=== PATIENT | female | born 1940 | race Caucasian/White ===

== ENCOUNTER 2016-12-10 22:00 | Emergency (ER) | payer OTHER ==
[~2016-12-10] VITALS: Ht 165.1 cm; Wt 78.3 kg
[~2016-12-10 22:00] MED LIST: ASPCH81X PO; AZEL30SP NAE; CHOL100027 PO; ESTR1CRE PV; FEXO1TAB49 PO; FLUT50SP14 NAE; GABA1CAP4 PO; LORA-741 PO; MONT1TAB3 PO; PANT40TA PO; ULT/50 PO; ZNTT/150 PO
[2016-12-10 22:01] VITALS: TEMP 36.7; Ht 165.1 cm; Wt 78.3 kg
--- NOTE | 2016-12-10 22:34 | EMERGENCY ROOM VISIT NOTE ---
History Report prepared by Andrew: Live Amezcua Under the Supervision of: Dr. Fabio Roberts D.O. First contact with patient: 22:06 Chief Complaint: FALL Stated Complaint: LF SHOULDER PAIN History of Present Illness The patient is a 76 year old female who presents to the Emergency Room with complaints of constant pain in the left shoulder that began following a fall, shortly prior to arrival. The patient states that she fell into a wall in her home this evening and injured left shoulder. Her pain is increased with range of motion of the joint. She denies any back pain, neck pain, or head pain at this time. 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 A total of 10 systems reviewed and were otherwise negative. Past Medical & Surgical Medical Problems: (1) GERD (gastroesophageal reflux disease) (2) Left ankle surgery Surgical Problems: (1) H/O: hysterectomy (2) Hx of appendectomy Family History FH: Parkinson's disease Social History Smoking Status: Never Smoker Alcohol Use: occasionally Marital Status: Occupation Status: retired Current/Historical Medications Scheduled Aspirin (Aspirin Chewable), 81 MG PO QAM Cholecalciferol (Vitamin D 1000 Unit), 1,000 INTER.UNIT PO QAM Estrogens, Conjugated (Premarin), 1 GM PV PRN Fexofenadine Hcl (Antionette Allergy), 180 MG PO QAM Gabapentin (Gabapentin), 300 MG PO TID Montelukast Sodium (Singulair), 10 MG PO QPM Pantoprazole (Protonix), 40 MG PO BID Ranitidine (Zantac), 150 MG PO BID Scheduled PRN Fluticasone Propionate (Nasal) (Flonase Allergy Relief), 2 SPRAYS THEE DAILY PRN for Nasal Congestion Lorazepam (Ativan), 0.5 MG PO Q8 PRN for PRN Tramadol Hcl (Ultram), 50 MG PO Q4H PRN Allergies Coded Allergies: Amoxicillin (Verified Adverse Reaction, Unknown, diarrhea, 12/10/16) Clavulanic Acid (Verified Adverse Reaction, Unknown, diarrhea, 12/10/16) Sulfamethoxazole w/Trimethoprim (Verified Adverse Reaction, Unknown, body aches, 12/10/16) Physical Exam Vital Signs Date Time Temp Pulse Resp B/P Pulse Ox O2 Delivery O2 Flow Rate FiO2 12/10/16 23:25 88 16 198/101 96 12/10/16 22:01 36.7 82 20 194/90 97 Room Air Physical Exam GENERAL: Patient is awake, alert, and somewhat anxious and uncomfortable appearing. EYES: The conjunctivae are clear. The pupils are round and reactive. EARS, NOSE, MOUTH AND THROAT: The nose is without any evidence of any deformity. Mucous membranes are moist tongue is midline NECK: The neck is nontender and supple. RESPIRATORY: Normal respiratory effort is noted there is no evidence of wheezing rhonchi or rales CARDIOVASCULAR: Regular rate and rhythm noted there no murmurs rubs or gallops normal S1 normal S2 GASTROINTESTINAL: The abdomen is soft. Bowel sounds are present in all quadrants. Abdomen is nontender PELVIS: The Pelvis is stable. No tenderness to palpation is noted. BACK: No midline tenderness or or step-off noted range of motion in flexion extension as well as rotation no signs of muscle spasm noted MUSCULOSKELETAL/EXTREMITIES: The left upper extremity was held in adduction position with internal rotation, there was a deltoid stepoff noted with anterior fullness noted in the left shoulder. SKIN: There is no obvious evidence of any rash. There are no petechiae, pallor or cyanosis noted. NEUROLOGIC: Patient is awake alert and oriented x3. Medical Decision & Procedures ER Provider Diagnostic Interpretation: Radiology results as stated below per my review and radiologist interpretation: LEFT SHOULDER 2 VIEWS HISTORY: Left shoulder pain. COMPARISON: None. FINDINGS: There is no fracture or dislocation. Soft tissues are unremarkable. Left clavicle is intact. IMPRESSION: No fractures. Electronically signed by: Ori Bustillo M.D. 12/10/2016 10:55 PM Dictated Date/Time: 12/10/2016 10:55 PM Medications Administered Medications (Trade) Dose Ordered Sig/Sohail Route Start Time Stop Time Status Last Admin Dose Admin Acetaminophen (Tylenol Tab) 1,000 mg NOW STAT PO 12/10/16 23:01 12/10/16 23:02 DC 12/10/16 23:15 1,000 MG Oxycodone HCl (Roxicodone Immediate Rel 5MG Home Pack) 1 homepack UD ONCE PO 12/10/16 23:15 12/10/16 23:16 DC 12/10/16 23:15 1 [facility] 220: The patient was evaluated in room B7. A complete history and physical examination were performed. 230: Ordered Tylenol 1000 mg PO. 231: Ordered Oxycodone HCl 1 homepack PO. 2319: Upon reevaluation, the patient is resting in bed, and her shoulder is feeling well. I discussed the results and treatment plan with her. She verbalized agreement of the treatment plan. The patient was discharged home. Medical Decision Differential diagnosis: Etiologies such as fracture, dislocation, neurovascular compromise, compartment syndrome, soft tissue injury, as well as others were entertained. Nursing notes reviewed. The patient is a 76-year-old female who presented to the emergency department for evaluation after she fell injuring her left shoulder. The patient's physical exam appeared to be consistent with an anterior shoulder dislocation. She was reduced without too much difficulty. She was treated with pain medication and a sling. The patient's shoulder x-ray revealed no acute abnormality post reduction. She was given referral from patient to the orthopedic physician of her choice. She was encouraged to rest the shoulder and avoid any strenuous activity. Otherwise she was encouraged to return to the emergency department immediately if symptoms change worsen or the need arises. Impression Primary Impression: Anterior dislocation of left shoulder Scribe Attestation The scribe's documentation has been prepared under my direction and personally reviewed by me in its entirety. I confirm that the note above accurately reflects all work, treatment, procedures, and medical decision making performed by me. Departure Information Dispostion Home / Self-Care Referrals Georgiana Daniel M.D. (PCP) Forms HOME CARE DOCUMENTATION FORM, IMPORTANT VISIT INFORMATION Patient Instructions My [facility] Additional Instructions Call orthopedic physician in the morning to schedule a follow-up appointment. Rest and avoid any strenuous activity. Continue using Motrin and Tylenol as directed for mild pain. Problem Qualifiers Primary Impression: Anterior dislocation of left shoulder Encounter type: initial encounter Qualified Codes: S43.015A - Anterior dislocation of left humerus, initial encounter
[2016-12-10] MEDS ORDERED: FLUT0.15 NAE (22:49)
[2016-12-10] MEDS ORDERED: PRMVC PV (22:49)
--- NOTE | 2016-12-10 22:57 | DIAGNOSTIC IMAGING REPORT ---
LEFT SHOULDER 2 VIEWS HISTORY: Left shoulder pain. COMPARISON: None. FINDINGS: There is no fracture or dislocation. Soft tissues are unremarkable. Left clavicle is intact. IMPRESSION: No fractures. Electronically signed by: Ori Bustillo M.D. 12/10/2016 10:55 PM Dictated Date/Time: 12/10/2016 10:55 PM
[2016-12-10] MEDS ORDERED: ACETAMINOPHEN 500 MG TAB PO STA (23:01)
[2016-12-10] MEDS ORDERED: OXYCODONE IR HOME PACK PO ONE (23:15)
[2016-12-10 23:25] VITALS: BP 198/101; PULSE 88; O2SAT 96
[2017-03-29] MEDS ORDERED: LOSA50TA6 PO (15:12)
== END 2016-12-10 23:32 | disposition home or self-care (01) ==
LOC: C.EDB 22:00
DX: S43.015A Anterior dislocation of left humerus, initial encounter (principal); W18.30XA Fall on same level, unspecified, initial encounter; Y92.009 Unspecified place in unspecified non-institutional (private) residence as the place of occurrence of the external cause; K21.9 Gastro-esophageal reflux disease without esophagitis; Z90.710 Acquired absence of both cervix and uterus; Z82.0 Family history of epilepsy and other diseases of the nervous system; Z79.82 Long term (current) use of aspirin

== ENCOUNTER 2018-02-05 15:32 | Observation (INO) | payer OTHER ==
[~2018-02-05] VITALS: Ht 165.1 cm; Wt 80.3 kg
[~2018-02-05 15:32] MED LIST changes: -AZEL30SP NAE; -ESTR1CRE PV; +FLUT0.15 NAE; -FLUT50SP14 NAE; +GABA-1219 PO; -GABA1CAP4 PO; +HYZ/50125 PO; +PRMVC PV; +RANI150T85 PO; -ZNTT/150 PO
[2018-02-05] MEDS ORDERED: ASPIRIN 81 MG CHEW PO STA (15:52)
[2018-02-05 16:07] LABS: BASO % 0.5 %; BASO ABS # 0.04 K/uL (0-0.2); EOS ABS # 0.22 K/uL (0-0.5); HEMATOCRIT 41.5 % (37-47); HEMOGLOBIN 13.8 g/dL (12.0-16.0); IG# 0.02 K/uL (0.00-0.02); LYMPH % 26.3 %; LYMPH ABS # 1.92 K/uL (1.2-3.4); MEAN CORPUSCULAR HEMOGLOBIN 30.3 pg (25-34); MEAN CORPUSCULAR HGB CONC 33.3 g/dl (32-36); MONO % 6.4 %; MONO ABS # 0.47 K/uL (0.11-0.59); NEUT % 63.5 %; NEUT ABS # 4.64 K/uL (1.4-6.5); PLATELET COUNT 349 K/uL (130-400); RED CELL DISTRIBUTION WIDTH CV 15.1 % (11.5-14.5); RED CELL DISTRIBUTION WIDTH SD 50.5 fL (36.4-46.3); WHITE BLOOD COUNT 7.31 K/uL (4.8-10.8)
[2018-02-05 16:29] LABS: ALBUMIN 3.7 gm/dl (3.4-5.0); ALKALINE PHOSPHATASE 101 U/L (45-117); ALT/SGPT 24 U/L (12-78); AST/SGOT 24 U/L (15-37); BLOOD UREA NITROGEN 9 mg/dl (7-18); CALCIUM 8.5 mg/dl (8.5-10.1); CARBON DIOXIDE 28 mmol/L (21-32); CREATININE 0.89 mg/dl (0.60-1.20); GLUCOSE 90 mg/dl (70-99); LIPASE 131 U/L (73-393); POTASSIUM 3.7 mmol/L (3.5-5.1); SODIUM 136 mmol/L (136-145); TOTAL PROTEIN 7.7 gm/dl (6.4-8.2)
--- NOTE | 2018-02-05 16:29 | DIAGNOSTIC IMAGING REPORT ---
SINGLE VIEW CHEST CLINICAL HISTORY: Atypical chest pain. FINDINGS: An AP, portable, upright chest radiograph is compared to study dated 02/25/2014. Correlation is made with chest CT dated 03/06/2013. The examination is significantly degraded by portable technique and apical lordotic positioning. The heart is top normal for projection. The pulmonary vasculature is noncongested. Chronic interstitial thickening is unchanged. There is left basilar scarring/atelectasis. No airspace consolidation or large pleural effusion is identified. No pneumothorax is seen. The skeletal structures are osteopenic. The bony thorax is grossly intact. IMPRESSION: No acute cardiopulmonary abnormality. Electronically signed by: Jamin Arias M.D. 02/05/2018 4:28 PM Dictated Date/Time: 02/05/2018 4:26 PM
[2018-02-05] MEDS ORDERED: ULT50 PO (17:27)
[2018-02-05] MEDS ORDERED: SNG10 PO (17:27)
[2018-02-05] MEDS ORDERED: RANI150T2 PO (17:27)
[2018-02-05] MEDS ORDERED: FLNIN/ NAE (17:27)
[2018-02-05] MEDS ORDERED: POLYETHYLENE (MIRALAX) 17 GM PACK PO PRN (18:15)
[2018-02-05] MEDS ORDERED: ACETAMINOPHEN 325 MG TAB PO PRN (18:15)
[2018-02-05] MEDS ORDERED: NITROGLYCERIN 0.4 MG SL PER TAB CHARGE SL PRN (18:15)
[2018-02-05] MEDS ORDERED: ONDANSETRON INJ 2 MG/ML 2 ML VIAL IV PRN (18:15)
[2018-02-05 18:29] LABS: PTT PATIENT 23.6 SECONDS (21.0-31.0)
[2018-02-05] MEDS ORDERED: FAMOTIDINE IV INJ 20 MG in DEXTROSE 5% 100ML 100 ML IV SCH (18:30)
[2018-02-05] MEDS ORDERED: TRAMADOL HCL 50 MG TAB PO PRN (18:30)
[2018-02-05] MEDS ORDERED: LORAZEPAM 0.5 MG TAB PO PRN (18:30)
[2018-02-05] MEDS ORDERED: FLUTICASONE PROPIONATE NA SPR 16 GM BTL NAE PRN (18:30)
--- NOTE | 2018-02-05 18:53 | History and Physical ---
History & Physical Date & Time of Service: Feb 05, 2018 at 18:30 Chief Complaint: Chest Pains, Pain In Left Arm Primary Care Physician: Georgiana Daniel M.D. History of Present Illness Source: patient, clinic records, hospital records Pt is 77 y/o F with PMH HTN, GERD, anxiety, IBS, chronic back pain, allergic rhinitis presented to ER with complaint of chest pain. Patient states proximally 1430 today was sitting in a movie theater when she started with left- sided chest pain described as aching with intermittent sharp pains. Pain radiated to left shoulder. Had some nausea, no vomiting. Hx GERD and reports often has indigestion, burping, sometimes epigastric and chest discomfort. She reports today's chest discomfort felt different than her reflux symptoms in the past. Patient states took a couple of Tums today with increased burping and no relief of CP. Denies any shortness of breath or pleuritic chest pain. Denies fever/chills, diaphoresis, D/C, LUU, dizziness, syncope, vision changes, neck pain, SOB, orthopnea, palpitations, cough, sore throat, choking, otalgia, rhinorrhea, abdominal pain, paresthesias, weakness, extremity weakness, extremity edema/erythema/pain, rashes, urinary symptoms, weight loss. Denies recent travel, history DVT/PE, known CAD. History stress test 2012: No evidence of ischemia, EF: 70% Past Medical/Surgical History Medical Problems: (1) Abdominal pain Status: Chronic (2) Allergic rhinitis Status: Chronic (3) Anxiety Status: Chronic (4) Arm pain, right Status: Resolved (5) Chest wall muscle strain Status: Resolved (6) Chronic back pain Status: Chronic (7) GERD (gastroesophageal reflux disease) Status: Chronic (8) HTN (hypertension) Status: Chronic (9) IBS (irritable bowel syndrome) Status: Chronic Surgical Problems: (1) H/O: hysterectomy Status: Resolved (2) Hx of appendectomy Status: Resolved (3) Left ankle surgery Status: Resolved Family History Diabetes mellitus FH: Parkinson's disease FH: atrial fibrillation FH: stomach cancer Parkinson's disease Social History Smoking Status: Never Smoker Smokeless Tobacco Use: No Alcohol Use: occasionally Drug Use: none Marital Status: Occupational Status: retired Immunizations History of Influenza Vaccine: Yes History of Tetanus Vaccine?: Unknown History of Pneumococcal: Yes History of Hepatitis B Vaccine: Unknown Allergies Coded Allergies: Amoxicillin (Verified Adverse Reaction, Unknown, diarrhea, 01/03/18) Clavulanic Acid (Verified Adverse Reaction, Unknown, diarrhea, 01/03/18) Sulfamethoxazole w/Trimethoprim (Verified Adverse Reaction, Unknown, body aches, 01/03/18) Home Medications Scheduled Aspirin (Aspirin Chewable), 81 MG PO QAM Cholecalciferol (Vitamin D 1000 Unit), 1,000 INTER.UNIT PO QAM Fexofenadine Hcl (Antionette Allergy), 180 MG PO QAM Gabapentin (Gabapentin), 300 MG PO TID Hctz/Losartan (Hyzaar 12.5MG/50MG), 1 TAB PO DAILY Montelukast Sod (Montelukast Sodium), 10 MG PO QPM Pantoprazole (Protonix), 40 MG PO BID Ranitidine HCl (Ranitidine HCl), 150 MG PO BID Scheduled PRN Fluticasone Propionate (Fluticasone Propionate), 2 SPRAYS THEE DAILY PRN for Allergy Symptoms Lorazepam (Ativan), 0.5 MG PO Q8 PRN for Anxiety Tramadol HCl (Tramadol HCl), 50 MG PO Q4H PRN for Pain Review of Systems See HPI for pertinent positives & negatives. All other systems reviewed and were otherwise negative Physical Exam Vital Signs Date Time Temp Pulse Resp B/P (MAP) Pulse Ox O2 Delivery O2 Flow Rate FiO2 02/05/18 17:42 74 16 161/86 96 Room Air 02/05/18 16:57 78 16 96 Room Air 02/05/18 16:33 77 02/05/18 16:06 87 16 145/94 97 Room Air 02/05/18 15:59 97 Room Air 02/05/18 15:59 97 Room Air 02/05/18 15:36 36.7 93 20 164/89 97 Room Air General Appearance: WD/WN, no apparent distress Head: normocephalic, atraumatic Eyes: normal inspection, sclerae normal ENT: hearing grossly normal, pharynx normal, + pertinent finding (Mucous membranes) Neck: supple, trachea midline Respiratory/Chest: lungs clear, normal breath sounds, no respiratory distress, + pertinent finding (Left sternal border mild tenderness to palpation, no rashes noted) Cardiovascular: regular rate, rhythm, no murmur, normal peripheral pulses Abdomen/GI: normal bowel sounds, soft, + pertinent finding (Mild tenderness to epigastric without rebound or guarding, no other abdominal tenderness to palpation) Back: no CVA tenderness Extremities/Musculoskelatal: no calf tenderness, normal capillary refill, no pedal edema, normal range of motion Neurologic/Psych: alert, normal mood/affect, oriented x 3 Skin: warm/dry Diagnostics Laboratory Results Results Past 24 Hours Test 02/05/18 15:54 Range/Units White Blood Count 7.31 4.8-10.8 K/uL Red Blood Count 4.56 4.2-5.4 M/uL Hemoglobin 13.8 12.0-16.0 g/dL Hematocrit 41.5 37-47 % Mean Corpuscular Volume 91.0 80-100 fL Mean Corpuscular Hemoglobin 30.3 25-34 pg Mean Corpuscular Hemoglobin Concent 33.3 32-36 g/dl Platelet Count 349 130-400 K/uL Mean Platelet Volume 9.0 7.4-10.4 fL Neutrophils (%) (Auto) 63.5 % Lymphocytes (%) (Auto) 26.3 % Monocytes (%) (Auto) 6.4 % Eosinophils (%) (Auto) 3.0 % Basophils (%) (Auto) 0.5 % Neutrophils # (Auto) 4.64 1.4-6.5 K/uL Lymphocytes # (Auto) 1.92 1.2-3.4 K/uL Monocytes # (Auto) 0.47 0.11-0.59 K/uL Eosinophils # (Auto) 0.22 0-0.5 K/uL Basophils # (Auto) 0.04 0-0.2 K/uL RDW Standard Deviation 50.5 36.4-46.3 fL RDW Coefficient of Variation 15.1 11.5-14.5 % Immature Granulocyte % (Auto) 0.3 % Immature Granulocyte # (Auto) 0.02 0.00-0.02 K/uL Prothrombin Time 10.0 9.0-12.0 SECONDS Prothromb Time International Ratio 1.0 0.9-1.1 Activated Partial Thromboplast Time 23.6 21.0-31.0 SECONDS Partial Thromboplastin Ratio 0.9 Sodium Level 136 136-145 mmol/L Potassium Level 3.7 3.5-5.1 mmol/L Chloride Level 102 98-107 mmol/L Carbon Dioxide Level 28 21-32 mmol/L Anion Gap 6.0 3-11 mmol/L Blood Urea Nitrogen 9 7-18 mg/dl Creatinine 0.89 0.60-1.20 mg/dl Est Creatinine Clear Calc Drug Dose 55.1 ml/min Estimated GFR () 71.9 Estimated GFR (Non- 62.1 BUN/Creatinine Ratio 9.8 10-20 Random Glucose 90 70-99 mg/dl Calcium Level 8.5 8.5-10.1 mg/dl Magnesium Level 2.5 1.8-2.4 mg/dl Total Bilirubin 0.8 0.2-1 mg/dl Direct Bilirubin 0.2 0-0.2 mg/dl Aspartate Amino Transf (AST/SGOT) 24 15-37 U/L Alanine Aminotransferase (ALT/SGPT) 24 12-78 U/L Alkaline Phosphatase 101 45-117 U/L Troponin I < 0.015 0-0.045 ng/ml Total Protein 7.7 6.4-8.2 gm/dl Albumin 3.7 3.4-5.0 gm/dl Lipase 131 73-393 U/L Diagnostic Radiology CXR: IMPRESSION: No acute cardiopulmonary abnormality. EKG EKG:Normal sinus rhythm, rate 84, nonspecific ST changes Read by dryerman/woman: Normal sinus rhythm Nonspecific ST abnormality Abnormal ECG When compared with ECG of 08-FEB-2014 08:49, Premature ventricular complexes are no longer Present Confirmed by HERIBERTO NAM ([id number]) on 02/05/2018 4:22:53 PM Impression Assessment and Plan Pt is 77 y/o F with PMH HTN, GERD, anxiety, IBS, chronic back pain, allergic rhinitis with reported left-sided chest pain with radiation to right shoulder started 1430 today while sitting watching a movie, tried Tums without relief. History stress test 2012: No evidence of ischemia, EF: 70% CHEST PAIN R/O ACS. Risk factors: HTN In ER vitals stable, negative initial troponin, EKG nonspecific ST changes, chest x-ray no acute changes. In ER patient given 324 mg aspirin. Reports intermittent chest pain currently rating 4 out of 10 on pain scale. Denies SOB/ diaphoresis/dizziness/palpitations. some reproducible chest pain on exam. DDX: GERD, musculoskeletal etiology, PE D-dimer elevated, pending CT Chest to r/o PE -Pending TSH -Monitor Vitals -Repeat EKG in am -Will trend troponin -Echo -Cardiology consult -lipid panel in a.m. -ASA -Nitro prn CP and repeat EKG for CP -CBC, PRP in a.m. HTN -Continue losartan/hctz GERD -We will switch PPI H2 ping IV for now ANXIETY -Continue Lorazepam as needed ALLERGIC RHINITIS -Continue Singulair, Antionette, Flonase as needed CHRONIC BACK PAIN -Continue gabapentin, tramadol as needed DVT Prophylaxis -Heparin SQ Disposition admit tele Full Code as per discussion with pt, however reports would not want prolonged life support Follows with Dr Daniel for routine care Pt was seen with Dr Bah. See addendum Attending Note: Patient is a 77 yr female who presents with atypical chest pain, sudden onset at rest, left sided, dull to sharp pain, radiating to left arm, associated with nausea, not improved with Tums. Patient had similar pain before which is though to be 2/2 GERD. She has elevated D-dimer. CTA is negative of PE, consolidation. Initial Troponin is negative, EKG showed nonspecific ST changes. Her last stress test is in 2012 which was normal. Reports travelling to [place] 2 months ago. Physical Exam: Vitals signs as noted above General Appearance:Moderately built and nourished, no apparent distress Head: normocephalic, Atraumatic Eyes: normal inspection, EOMI, PERRL Neck: supple, Trachea midline Respiratory/Chest: Normal breath sounds, CTA Cardiovascular: S1, S2, No murmur, mild tenderness on palpation of left side Abdomen/GI:Soft, Non tender, Bowel sounds present Extremities/Musculoskelatal:normal inspection, no edema Neurologic/Psych:AAOX3, grossly no focal neurological deficits Skin:normal color,warm Assessment and Plan: Atypical Chest Pain DD: PUD, Gastritis EKG: Nonspecific ST changes Currently chest pain is minimal Continue Aspirin Lipid Panel in AM Elevated D-dimer: CTA: No PE, consolidation Check venous doppler TSH: normal ECHO, trend troponin Cardiology consulted I personally reviewed the record. Patient is interviewed and examined at bedside. Patient's care is coordinated with Erika Putnam PA-C. Please refer to the documentation above for details of patient's presentation and for discussion of other issues. Resuscitation Status VTE Prophylaxis Will order VTE Prophylaxis: Yes Additional Copies To Georgiana Daniel M.D.
[2018-02-05] MEDS ORDERED: OPTIRAY 320 IV PRN (19:00)
--- NOTE | 2018-02-05 19:25 | DIAGNOSTIC IMAGING REPORT ---
CT ANGIOGRAM OF THE CHEST CLINICAL HISTORY: Atypical chest pain. COMPARISON STUDY: Chest CT dated 03/06/2013. Chest x-ray dated 02/05/2018. TECHNIQUE: Following the IV administration of 92 cc of Optiray 320, CT angiogram of the chest was performed from the upper abdomen to the thoracic inlet utilizing the pulmonary embolus protocol. Images are reviewed in the axial, sagittal, and coronal planes. 3-D MIPS images are created and assessed. IV contrast was administered without complication. A dose lowering technique was utilized adhering to the principles of ALARA. CT DOSE: 313.46 mGy.cm FINDINGS: Thyroid: Imaged portions of the thyroid gland are enlarged and heterogeneous. There are numerous low-attenuation nodules measuring up to 1.7 cm. This is similar in appearance to the 2013 examination. Thoracic aorta: There is mild atherosclerotic calcification of the thoracic aorta, which is normal in caliber and demonstrates standard 3-vessel arch anatomy. No dissection is seen. Pulmonary vasculature: The pulmonary trunk is normal in caliber. There are no filling defects identified in main, lobar, or segmental pulmonary branches to suggest pulmonary embolus. An apparent filling defect within a segmental branch of the right upper lobe as seen on image #186 is likely artifactual. Heart: The heart is top normal in size and without pericardial effusion. Lungs and pleural spaces: There is bibasilar scarring/atelectasis. No airspace consolidation or pleural effusion is identified. Mild diffuse peribronchial thickening is observed. The trachea and central airways are clear. A 7 mm pleural-based nodule in the right middle lobe is seen on image #122. This is unchanged from 2013 and of doubtful significance. Mediastinum: There is no mediastinal lymphadenopathy. Shayy: Clear. Axillae: There is no axillary lymphadenopathy. Upper abdomen: There is a tiny hiatal hernia. Partially visualized upper abdominal viscera is otherwise within normal limits. Skeletal structures: The skeletal structures are osteopenic. No lytic or blastic bony lesions are seen. Mild degenerative change is seen in the shoulders and thoracic spine. IMPRESSION: 1. There is no evidence of pulmonary embolus in the main, lobar, or segmental pulmonary arteries. 2. There is no airspace consolidation or pleural effusion. 3. Mild diffuse peribronchial thickening suggests reactive airway disease. Clinical correlation will be required. 4. Additional findings as above. Electronically signed by: Jamin Arias M.D. 02/05/2018 7:23 PM Dictated Date/Time: 02/05/2018 7:16 PM
[2018-02-05 19:38] VITALS: BP 169/78; PULSE 75; TEMP 37; O2SAT 97; Ht 165.1 cm; Wt 80.3 kg
[2018-02-05] MEDS: FAMOTIDINE IV INJ 20 MG in SYRINGE 3 ML IV SCH (20:13)
[2018-02-05] MEDS ORDERED: IV FLUIDS COMPLETED PRN (21:00)
[2018-02-05] MEDS ORDERED: MONTELUKAST SOD 10 MG TAB PO SCH (21:00)
[2018-02-05] MEDS: PANTOprazole INJ 40 MG in SYRINGE 0 ML IV SCH (21:08)
[2018-02-05] MEDS: GABAPENTIN 300 MG CAP PO SCH (21:09)
[2018-02-05] MEDS: HEPARIN SOD 5000 UNIT/0.5 ML CARP SQ SCH (21:11)
--- NOTE | 2018-02-05 21:23 | EMERGENCY ROOM VISIT NOTE ---
History Report prepared by Andrew: Aiden Garcia Under the Supervision of: Dr. Ottoniel Fung First contact with patient: 15:39 Chief Complaint: CHEST PAIN Stated Complaint: CHEST PAINS, PAIN IN LEFT ARM History of Present Illness The patient is a 77 year old female who presents to the Emergency Room with complaints of intermittent chest pain that began an hour ago. She rates her discomfort as an 8/10 in severity. The patient states she was in the movie theater when she developed chest pain radiated to her left side. The patient does associated some nausea and left sided arm pain with it. The patient denies shortness of breath, right sided pain, abdominal pain, back pain, fever, and cough. She denies any recent travel. The patient states she was not experiencing any symptoms yesterday. She reports she has been eating and drinking normally. The patient states she took Tums for her symptoms without any relief. She reports she did have semi-similar symptoms in the past. She reports she was worked up for her symptoms at the time and had a stress test done. The patient states she had no significant results. She reports her symptoms are worse than her previous symptoms. The patient denies a personal cardiac history but states her father did have atrial fibrillation. She notes she takes a baby Aspirin every day. Source of History: patient Onset: an hour ago Position: chest Symptom Intensity: 8/10 Timing: intermittent Modifying Factors (Relieving): other (Tums) Associated Symptoms: + nausea, No fevers, No cough, No SOB, No abdominal pain, No back pain Note: Associated symptoms: left arm pain Review of Systems See HPI for pertinent positives and negatives. A total of ten systems were reviewed and were otherwise negative. Past Medical & Surgical Medical Problems: (1) Abdominal pain (2) Allergic rhinitis (3) Anxiety (4) Arm pain, right (5) Chest wall muscle strain (6) Chronic back pain (7) GERD (gastroesophageal reflux disease) (8) HTN (hypertension) (9) IBS (irritable bowel syndrome) Surgical Problems: (1) H/O: hysterectomy (2) Hx of appendectomy (3) Left ankle surgery Family History FH: Parkinson's disease Social History Smoking Status: Never Smoker Alcohol Use: occasionally Marital Status: Occupation Status: retired Current/Historical Medications Scheduled Aspirin (Aspirin Chewable), 81 MG PO QAM Cholecalciferol (Vitamin D 1000 Unit), 1,000 INTER.UNIT PO QAM Fexofenadine Hcl (Antionette Allergy), 180 MG PO QAM Gabapentin (Gabapentin), 300 MG PO TID Hctz/Losartan (Hyzaar 12.5MG/50MG), 1 TAB PO DAILY Montelukast Sod (Montelukast Sodium), 10 MG PO QPM Pantoprazole (Protonix), 40 MG PO BID Ranitidine HCl (Ranitidine HCl), 150 MG PO BID Scheduled PRN Fluticasone Propionate (Fluticasone Propionate), 2 SPRAYS THEE DAILY PRN for Allergy Symptoms Lorazepam (Ativan), 0.5 MG PO Q8 PRN for Anxiety Tramadol HCl (Tramadol HCl), 50 MG PO Q4H PRN for Pain Allergies Coded Allergies: Amoxicillin (Verified Adverse Reaction, Unknown, diarrhea, 01/03/18) Clavulanic Acid (Verified Adverse Reaction, Unknown, diarrhea, 01/03/18) Sulfamethoxazole w/Trimethoprim (Verified Adverse Reaction, Unknown, body aches, 01/03/18) Physical Exam Vital Signs Date Time Temp Pulse Resp B/P (MAP) Pulse Ox O2 Delivery O2 Flow Rate FiO2 02/05/18 17:42 74 16 161/86 96 Room Air 02/05/18 16:57 78 16 96 Room Air 02/05/18 16:33 77 02/05/18 16:06 87 16 145/94 97 Room Air 02/05/18 15:59 97 Room Air 02/05/18 15:59 97 Room Air 02/05/18 15:36 36.7 93 20 164/89 97 Room Air Physical Exam GENERAL: Awake, alert, well-appearing, in no distress HENT: Normocephalic, atraumatic. Oropharynx unremarkable. EYES: Normal conjunctiva. Sclera non-icteric. NECK: Supple. No nuchal rigidity. RESPIRATORY: Clear to auscultation. No wheezes. Normal respiratory effort. CARDIAC: Normal rate. Normal rhythm. Extremities warm and well perfused. GI: Soft, non-distended. No tenderness to palpation. No rebound or guarding. No masses. RECTAL: Deferred. MUSCULOSKELETAL: Atraumatic. Chest examination reveals mild left upper chest wall tenderness. The back is symmetrical on inspection without obvious abnormality. There is no CVA tenderness to palpation. LOWER EXTREMITIES: Calves are equal size bilaterally and non-tender. Trace pedal edema NEURO: Normal sensorium. No sensory or motor deficits noted. SKIN: Warm and dry. No rash or jaundice noted. Medical Decision & Procedures ER Provider Diagnostic Interpretation: X-ray: Per my interpretation, radiologist review. SINGLE VIEW CHEST CLINICAL HISTORY: Atypical chest pain. FINDINGS: An AP, portable, upright chest radiograph is compared to study dated 02/25/2014. Correlation is made with chest CT dated 03/06/2013. The examination is significantly degraded by portable technique and apical lordotic positioning. The heart is top normal for projection. The pulmonary vasculature is noncongested. Chronic interstitial thickening is unchanged. There is left basilar scarring/atelectasis. No airspace consolidation or large pleural effusion is identified. No pneumothorax is seen. The skeletal structures are osteopenic. The bony thorax is grossly intact. IMPRESSION: No acute cardiopulmonary abnormality. Electronically signed by: Jamin Arias M.D. 02/05/2018 4:28 PM Dictated Date/Time: 02/05/2018 4:26 PM Laboratory Results 02/05/18 15:54 Red Blood Count 4.56, Mean Corpuscular Volume 91.0, Mean Corpuscular Hemoglobin 30.3, Mean Corpuscular Hemoglobin Concent 33.3, Mean Platelet Volume 9.0, Neutrophils (%) (Auto) 63.5, Lymphocytes (%) (Auto) 26.3, Monocytes (%) (Auto) 6.4, Eosinophils (%) (Auto) 3.0, Basophils (%) (Auto) 0.5, Neutrophils # (Auto) 4.64, Lymphocytes # (Auto) 1.92, Monocytes # (Auto) 0.47, Eosinophils # (Auto) 0.22, Basophils # (Auto) 0.04 02/05/18 15:54 Test 02/05/18 15:54 White Blood Count 7.31 K/uL (4.8-10.8) Red Blood Count 4.56 M/uL (4.2-5.4) Hemoglobin 13.8 g/dL (12.0-16.0) Hematocrit 41.5 % (37-47) Mean Corpuscular Volume 91.0 fL (80-100) Mean Corpuscular Hemoglobin 30.3 pg (25-34) Mean Corpuscular Hemoglobin Concent 33.3 g/dl (32-36) Platelet Count 349 K/uL (130-400) Mean Platelet Volume 9.0 fL (7.4-10.4) Neutrophils (%) (Auto) 63.5 % Lymphocytes (%) (Auto) 26.3 % Monocytes (%) (Auto) 6.4 % Eosinophils (%) (Auto) 3.0 % Basophils (%) (Auto) 0.5 % Neutrophils # (Auto) 4.64 K/uL (1.4-6.5) Lymphocytes # (Auto) 1.92 K/uL (1.2-3.4) Monocytes # (Auto) 0.47 K/uL (0.11-0.59) Eosinophils # (Auto) 0.22 K/uL (0-0.5) Basophils # (Auto) 0.04 K/uL (0-0.2) RDW Standard Deviation 50.5 fL (36.4-46.3) RDW Coefficient of Variation 15.1 % (11.5-14.5) Immature Granulocyte % (Auto) 0.3 % Immature Granulocyte # (Auto) 0.02 K/uL (0.00-0.02) Prothrombin Time 10.0 SECONDS (9.0-12.0) Prothromb Time International Ratio 1.0 (0.9-1.1) Activated Partial Thromboplast Time 23.6 SECONDS (21.0-31.0) Partial Thromboplastin Ratio 0.9 D-Dimer 1110 ug/L FEU (0-500) Anion Gap 6.0 mmol/L (3-11) Est Creatinine Clear Calc Drug Dose 55.1 ml/min Estimated GFR () 71.9 Estimated GFR (Non- 62.1 BUN/Creatinine Ratio 9.8 (10-20) Calcium Level 8.5 mg/dl (8.5-10.1) Magnesium Level 2.5 mg/dl (1.8-2.4) Total Bilirubin 0.8 mg/dl (0.2-1) Direct Bilirubin 0.2 mg/dl (0-0.2) Aspartate Amino Transf (AST/SGOT) 24 U/L (15-37) Alanine Aminotransferase (ALT/SGPT) 24 U/L (12-78) Alkaline Phosphatase 101 U/L (45-117) Troponin I < 0.015 ng/ml (0-0.045) Total Protein 7.7 gm/dl (6.4-8.2) Albumin 3.7 gm/dl (3.4-5.0) Lipase 131 U/L (73-393) Thyroid Stimulating Hormone (TSH) 0.666 uIu/ml (0.300-4.500) Laboratory results reviewed by me Medications Administered Medications (Trade) Dose Ordered Sig/Sohail Route Start Time Stop Time Status Last Admin Dose Admin Aspirin (Aspirin Chew) 324 mg NOW STAT PO 02/05/18 15:52 02/05/18 15:54 DC 02/05/18 16:04 324 MG ECG Per My Interpretation Indication: chest pain Rate (beats per minute): 84 Rhythm: normal sinus Findings: T-wave inversion (Lead III), no ectopy, other (No ST elevation) Comparison ECG Date: 02/08/14 Change: no significant change ED Course 1541: The patient was evaluated in room C02B. A complete history and physical exam was performed. 1552: Ordered Aspirin 324 mg PO. 1708: I reevaluated the patient who is resting comfortably. She still has some 4 /10 chest pain. Discussed the results and treatment plan with the daughter. The hospitalist was paged. 1725: I discussed the patients case with TAMICA Youngblood Hospitalist. She understands the patients condition and agrees to accept the patient. The patient will be evaluated for further management and care. Medical Decision Differential Diagnosis includes: ACS, PE, dissection, pneumonia, chest wall pain. Patient presentation concerning for possible ACS although pain could be muscular skeletal in nature rather than cardiac. Lower suspicion for PE or dissection at this time. Does not seem gastric in nature and did not improve with Tums prior to arrival. Chest x-ray is unremarkable. EKG is unchanged. Troponin completed here and negative. Given aspirin with some improvement of pain. Moderate risk heart score. Discussion about the risks and benefits with patient and family at bedside options. Feel that admission for rule out chest pain is reasonable and they are in agreement. Medication Reconcilliation Current Medication List: was personally reviewed by me Blood Pressure Screening Patient's blood pressure: Elevated blood pressure Referred to Hospitalist Consults Time Called: 1708 Consulting Physician: TAMICA Youngblood Hospitalist Returned Call: 1725 I discussed the patients case with TAMICA Youngblood Hospitalist. She understands the patients condition and agrees to accept the patient. The patient will be evaluated for further management and care. Impression Primary Impression: Chest pain Scribe Attestation The scribe's documentation has been prepared under my direction and personally reviewed by me in its entirety. I confirm that the note above accurately reflects all work, treatment, procedures, and medical decision making performed by me. Departure Information Dispostion Being Evaluated By Hospitalist Referrals Georgiana Daniel M.D. (PCP) Patient Instructions My [facility] Problem Qualifiers Primary Impression: Chest pain Chest pain type: unspecified Qualified Codes: R07.9 - Chest pain, unspecified
[2018-02-05 23:10] VITALS: BP 117/75; PULSE 68; TEMP 36.8; O2SAT 96
[2018-02-06 03:30] VITALS: BP 114/74; PULSE 72; TEMP 36.6; O2SAT 96
[2018-02-06 04:52] LABS: HEMATOCRIT 36.9 % (37-47); HEMOGLOBIN 12.6 g/dL (12.0-16.0); MEAN CELL VOLUME 90.7 fL (80-100); MEAN CORPUSCULAR HGB CONC 34.1 g/dl (32-36); MEAN PLATELET VOLUME 9.1 fL (7.4-10.4); PLATELET COUNT 290 K/uL (130-400); RED CELL DISTRIBUTION WIDTH SD 49.7 fL (36.4-46.3); WHITE BLOOD COUNT 5.63 K/uL (4.8-10.8)
[2018-02-06 05:26] LABS: BLOOD UREA NITROGEN 10 mg/dl (7-18); CALCIUM 8.2 mg/dl (8.5-10.1); CARBON DIOXIDE 28 mmol/L (21-32); CHOLESTEROL 178 mg/dl (0-200); CREATININE 0.86 mg/dl (0.60-1.20); GLUCOSE 82 mg/dl (70-99); LDL CHOLESTEROL CALCULATED 102 mg/dl; SODIUM 139 mmol/L (136-145)
[2018-02-06] MEDS: HEPARIN SOD 5000 UNIT/0.5 ML CARP SQ SCH ×2 (05:49→13:53)
[2018-02-06 06:25] VITALS: BP 117/76; PULSE 71; TEMP 36.7; O2SAT 96
[2018-02-06] MEDS: PANTOprazole INJ 40 MG in SYRINGE 0 ML IV SCH (07:39)
[2018-02-06] MEDS: GABAPENTIN 300 MG CAP PO SCH ×2 (07:39→13:53)
--- NOTE | 2018-02-06 08:56 | DIAGNOSTIC IMAGING REPORT ---
VENOUS DOPPLER LWR EXT BILA HISTORY: Pain. Edema. R/O DVT COMPARISON STUDY: None. FINDINGS: There is normal compressibility, flow, and augmentation within the bilateral lower extremity deep venous systems. IMPRESSION: No DVT within the right or left lower extremity. The above report was generated using voice recognition software. It may contain grammatical, syntax or spelling errors. Electronically signed by: Juan C Sheppard M.D. 02/06/2018 8:55 AM Dictated Date/Time: 02/06/2018 8:50 AM
[2018-02-06] MEDS ORDERED: FEXOFENADINE HCL 180 MG TAB PO SCH (09:00)
[2018-02-06] MEDS ORDERED: CHOLECALCIFEROL 1000 INTER.UNIT TAB PO SCH (09:00)
[2018-02-06] MEDS ORDERED: LOSARTAN/HCTZ 50-12.5 EA TAB PO SCH (09:00)
[2018-02-06] MEDS ORDERED: ASPIRIN 81 MG ECTAB PO SCH (09:00)
[2018-02-06] MEDS: FAMOTIDINE IV INJ 20 MG in SYRINGE 3 ML IV SCH (09:06)
--- NOTE | 2018-02-06 09:59 | Cardiology Consultation ---
Cardiology Consultation Date of Consultation: Feb 06, 2018 Requesting Physician: Thom Attending Wheel Buffer: Jorden History of Present Illness Ms. Hernandez is a very pleasant 77 year old female who is being seen at the request of Dr. Bah. Reason for consultation is chest pain. Ms. Hernandez notes being in her usual state of health yesterday morning. Instead of going out for lunch the patient and her granddaughter decided to go to the [employer] theater. At the [employer] theater she consumed popcorn with butter and a diet coke. After the movie they decided to go to [employer] for ice cream. It was on the way to [employer], while seated in her car as a passenger, that she developed pain across the top of her chest, down around the left lateral breast , and discomfort in the left upper arm. After developing the chest discomfort she felt somewhat sick in the stomach with nausea. No vomiting. She thought her symptoms were secondary to reflux, taking three Tums without benefit. She continued to have this discomfort while her granddaughter Natalie went in to the [employer] to get ice cream. Thereafter her granddaughter drove her to the emergency room where she was seen and evaluated. EKG showed nonspecific changes. Troponin negative. Chest x-ray showed no acute abnormality. An elevated d-dimer led to a CT scan of the chest which showed no evidence of PE. Bilateral lower extremity venous duplex this morning showed no evidence of DVT in either the left or the right lower extremity. Follow-up EKG today reveals normal sinus rhythm with sinus arrhythmia. Continuous telemetry monitoring reveals sinus in the 70s without significant tachycardia or bradycardia arrhythmias. Past Medical/Surgical History Problem List: Hypertension Gastroesophageal reflux disease Pancreatic cyst, intraductal papillary mucinous neoplasm Thyroid nodule Adenomatous hyperplasia of uterus Anxiety Irritable back syndrome Chronic back pain Seasonal allergies Appendectomy Hysterectomy Tubal ligation Reconstructive left ankle surgery Family History Diabetes mellitus FH: Parkinson's disease FH: atrial fibrillation FH: stomach cancer Parkinson's disease Father had atrial fibrillation, passing at the age of 89 following a fall with resultant head injury. Mother at 83 with Parkinson's disease. One brother with atrial fibrillation. Social History Lifelong non-smoker. Social alcohol only. No illegal drug use. 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 One son who committed suicide approximately 7 years ago. She notes having a [id number], 3 grandchildren ages 22, 21, in 19, as well as a brother and [id number] who live close. Review Of Systems General: No fevers chills or night sweats HEENT: Glasses. Status post bilateral cataract extraction. No headache. Cardiovascular: See above. No palpitations. No orthopnea or PND. Lower extremity peripheral edema. No near syncope or true syncope. Pulmonary: No hemoptysis. No recent URIs. No history of asthma or COPD. No history of PE. No history of sleep apnea. Gastrointestinal: GERD. Chart history of hiatal hernia. Nausea. No vomiting. IBS. No melena or hematochezia. Skin: No rash. Musculoskeletal: Chronic back pain. Chronic left ankle pain. Neurological: No history of TIA, CVA, or seizures. Complete review of system is otherwise as stated above, negative, noncontributory. Allergies Coded Allergies: Amoxicillin (Verified Adverse Reaction, Unknown, diarrhea, 01/03/18) Clavulanic Acid (Verified Adverse Reaction, Unknown, diarrhea, 01/03/18) Sulfamethoxazole w/Trimethoprim (Verified Adverse Reaction, Unknown, body aches, 01/03/18) Medications Reported Home Medications Medications Dose Route/Sig Max Daily Dose Days Date Category Montelukast Sodium (Montelukast Sod) 10 Mg Tab 10 Mg PO QPM 02/05/18 Reported Fluticasone Propionate 120 Sprays/6000 Mcg Inha 2 Sprays THEE DAILY PRN 02/05/18 Reported Ranitidine HCl 150 Mg Tab 150 Mg PO BID 02/05/18 Reported Tramadol HCl 50 Mg Tab 50 Mg PO Q4H PRN 02/05/18 Reported Hyzaar 12.5MG/50MG (HCTZ/Losartan Potassium) Tab 1 Tab PO DAILY 12/19/17 Reported Ativan (Lorazepam) 0.5 Mg Tab 0.5 Mg PO Q8 PRN 04/21/15 Reported Gabapentin 300 Mg Cap 300 Mg PO TID 02/08/14 Reported Antionette Allergy (Fexofenadine Hcl) 180 Mg Tab 180 Mg PO QAM 03/06/13 Reported Vitamin D 1000 Unit (Cholecalciferol) 1,000 Unit Cap 1,000 Inter.unit PO QAM 03/06/13 Reported Protonix (Pantoprazole Sodium) 40 Mg Tab 40 Mg PO BID 03/06/13 Reported Aspirin Chewable (Aspirin) 81 Mg Chew 81 Mg PO QAM 03/21/12 Reported Physical Exam Vital Signs (Last 8hrs): Last 8 Hrs Date Time Temp Pulse Resp B/P (MAP) Pulse Ox O2 Delivery O2 Flow Rate FiO2 02/06/18 08:00 Room Air 02/06/18 06:25 36.7 71 18 117/76 (90) 96 Room Air 02/06/18 03:30 36.6 72 18 114/74 (87) 96 Room Air General Appearance: Alert and Oriented x3. NAD. HEENT: Normocephalic Atraumatic. FLORENITNO, EOMI, conjunctiva and sclera clear Neck: Supple. No carotid bruits noted. No JVD. No HJD. Respiratory: Breath sounds clear to auscultation bilaterally. No w/r/r. Cardiovascular: Regular rate and rhythm, 70 bpm. Soft early systolic murmur heard at the lower left sternal border. No diastolic murmur. No rub. No gallop. PMI is nondisplaced. Abdomen: Normal bowel sounds, soft nontender. no abdominal bruits. Extremities: No edema. No clubbing. No cyanosis. Distal pulses are 2/4 bilaterally. Neuro: No focal deficits. Psychiatric: Normal affect. Data Last 24 Hours Test 02/05/18 15:54 02/05/18 21:52 02/06/18 04:29 White Blood Count 7.31 K/uL 5.63 K/uL Red Blood Count 4.56 M/uL 4.07 M/uL Hemoglobin 13.8 g/dL 12.6 g/dL Hematocrit 41.5 % 36.9 % Mean Corpuscular Volume 91.0 fL 90.7 fL Mean Corpuscular Hemoglobin 30.3 pg 31.0 pg Mean Corpuscular Hemoglobin Concent 33.3 g/dl 34.1 g/dl Platelet Count 349 K/uL 290 K/uL Mean Platelet Volume 9.0 fL 9.1 fL Neutrophils (%) (Auto) 63.5 % Lymphocytes (%) (Auto) 26.3 % Monocytes (%) (Auto) 6.4 % Eosinophils (%) (Auto) 3.0 % Basophils (%) (Auto) 0.5 % Neutrophils # (Auto) 4.64 K/uL Lymphocytes # (Auto) 1.92 K/uL Monocytes # (Auto) 0.47 K/uL Eosinophils # (Auto) 0.22 K/uL Basophils # (Auto) 0.04 K/uL RDW Standard Deviation 50.5 fL 49.7 fL RDW Coefficient of Variation 15.1 % 15.0 % Immature Granulocyte % (Auto) 0.3 % Immature Granulocyte # (Auto) 0.02 K/uL Prothrombin Time 10.0 SECONDS Prothromb Time International Ratio 1.0 Activated Partial Thromboplast Time 23.6 SECONDS Partial Thromboplastin Ratio 0.9 D-Dimer 1110 ug/L FEU Sodium Level 136 mmol/L 139 mmol/L Potassium Level 3.7 mmol/L 4.0 mmol/L Chloride Level 102 mmol/L 104 mmol/L Carbon Dioxide Level 28 mmol/L 28 mmol/L Anion Gap 6.0 mmol/L 7.0 mmol/L Blood Urea Nitrogen 9 mg/dl 10 mg/dl Creatinine 0.89 mg/dl 0.86 mg/dl Est Creatinine Clear Calc Drug Dose 55.1 ml/min 56.6 ml/min Estimated GFR () 71.9 75.0 Estimated GFR (Non- 62.1 64.7 BUN/Creatinine Ratio 9.8 12.0 Random Glucose 90 mg/dl 82 mg/dl Calcium Level 8.5 mg/dl 8.2 mg/dl Magnesium Level 2.5 mg/dl 2.3 mg/dl Total Bilirubin 0.8 mg/dl Direct Bilirubin 0.2 mg/dl Aspartate Amino Transf (AST/SGOT) 24 U/L Alanine Aminotransferase (ALT/SGPT) 24 U/L Alkaline Phosphatase 101 U/L Troponin I < 0.015 ng/ml < 0.015 ng/ml < 0.015 ng/ml Total Protein 7.7 gm/dl Albumin 3.7 gm/dl Lipase 131 U/L Thyroid Stimulating Hormone (TSH) 0.666 uIu/ml Triglycerides Level 82 mg/dl Cholesterol Level 178 mg/dl HDL Cholesterol 60 mg/dl LDL Cholesterol, Calculated 102 mg/dl VLDL Cholesterol, Calculated 16 mg/dl Cholesterol/HDL Ratio 3.0 Assessment & Plan Atypical chest discomfort. EKG with nonspecific changes on presentation Troponin negative 3 Resting echocardiogram pending Chest x-ray without acute process Chest CT negative for pulmonary embolism Bilateral venous duplex negative of DVT Proceed with exercise stress testing if resting echocardiography is ok. Risk factor and life style modification.
--- NOTE | 2018-02-06 11:27 | EXERCISE STRESS ECHO ---
*NOTICE TO RECEIVING DEMOCRAT AGENCY This information is strictly Confidential and protected under [place] law. [place] law prohibits you from making any further disclosure of this information unless further disclosure is expressly permitted by the written consent of the person to whom it pertains or is authorized by law. A general authorization for the release of medical or other information is not sufficient for this purpose. Hospital accepts no responsibility if the information is made available to any other person, INCLUDING THE PATIENT. Interpretation Summary * Name: Chriss IVY Study Date: 02/06/2018 09:41 AM BP: 138/71 mmHg * Patient Location: C.2T\S\S240\S\2 HR: 90 * : 1940 (M/d/) Gender: Female Height: 65 in * Age: 77 yrs Ethnicity: [place] Weight: 177 lb * Ordering Physician: Juan C Holland * Referring Physician: Self, Referred * Performed By: Vanessa Boswell RDCS * * Reason For Study: Chest pain * BSA: 1.9 m2 * The stress echocardiogram is negative for inducible ischemia. * -- Conclusions -- * Exercise capacity was above average for age with the patient achieving 7 met level and greater than 100% age-predicted maximum heart rate without cardiac symptoms. * Stress EKG was nonischemic with 1/[address] depression at peak workload and no arrhythmias * Resting wall motion: Normal. Stress wall motion: Appropriate increase in Left ventricular systolic function and decrease in cavity size. No stress induced segmental wall motion abnormalities. * Left ventricular systolic function is normal. Procedure Details * ECHOEX, CPT #[id number] Left Ventricle * The left ventricle is normal in size. * There is borderline concentric left ventricular hypertrophy. * Left ventricular systolic function is normal. * Ejection Fraction = 65-70%. * Resting wall motion: Normal. Stress wall motion: Appropriate increase in Left ventricular systolic function and decrease in cavity size. No stress induced segmental wall motion abnormalities. Stress Parameters * Normal baseline electrocardiogram. * Stress EKG was nonischemic with 1/[address] depression at peak workload and no arrhythmias * The stress portion of this study was personally supervised by the undersigned interpreting physician. * Rest heart rate was '90' BPM. * Rest blood pressure was '138/71' * Maximum heart rate achieved was 153 bpm. * Maximum heart rate was 107 % of maximum age-predicted heart rate. * Maximum blood pressure was '189/81' * Total exercise time was '6:00' * Maximum exercise MET level achieved was '7.00' METS * Maximum treadmill speed was '2.50' miles per hour. * Maximum treadmill elevation was '12.00'% grade. * Exercise was terminated due to 'achieving target heart rate' * Exercise capacity was above average for age with the patient achieving 7 met level and greater than 100% age-predicted maximum heart rate without cardiac symptoms.
--- NOTE | 2018-02-06 11:27 | ECHOCARDIOGRAM REPORT ---
*NOTICE TO RECEIVING REPUBLICAN AGENCY This information is strictly Confidential and protected under [place] law. [place] law prohibits you from making any further disclosure of this information unless further disclosure is expressly permitted by the written consent of the person to whom it pertains or is authorized by law. A general authorization for the release of medical or other information is not sufficient for this purpose. Hospital accepts no responsibility if the information is made available to any other person, INCLUDING THE PATIENT. Interpretation Summary * Name: Chriss IVY Study Date: 02/06/2018 06:48 AM BP: 114/74 mmHg * Patient Location: [facility] HR: 72 * : 1940 (M/d/yyyy) Gender: Female Height: 65 in * Age: 77 yrs Ethnicity: CA Weight: 180 lb * Ordering Physician: Erika Putnam * Referring Physician: Self, Referred * Performed By: Vanessa Boswell RDCS * * Reason For Study: Chest pain * BSA: 1.9 m2 * -- Conclusions -- * The left ventricle is normal in size. * There is borderline concentric left ventricular hypertrophy. * Left ventricular systolic function is normal. * The left ventricular wall motion is normal. * Ejection Fraction = 65-70%. * Aortic valve sclerosis moderate, without significant aortic valvular stenosis. * There is mild mitral regurgitation. * There is trace tricuspid regurgitation. Procedure Details * A complete two-dimensional transthoracic echocardiogram was performed (2D, M-mode, Doppler and color flow Doppler). Left Ventricle * The left ventricle is normal in size. * There is borderline concentric left ventricular hypertrophy. * Ejection Fraction = 65-70%. * Left ventricular systolic function is normal. * The left ventricular wall motion is normal. Right Ventricle * The right ventricle is normal in size and function. Atria * The left atrial size is normal. * Right atrial size is normal. * No ASD detected; PFO is not assessed. Mitral Valve * There is mild mitral annular calcification. * There is no mitral valve stenosis. * There is mild mitral regurgitation. Tricuspid Valve * The tricuspid valve anatomy is normal. * There is no tricuspid stenosis. * There is trace tricuspid regurgitation. * Doppler findings do not suggest pulmonary hypertension. Aortic Valve * The aortic valve is trileaflet. * Aortic valve sclerosis moderate, without significant aortic valvular stenosis. * No aortic regurgitation is present. Pulmonic Valve * The pulmonic valve is not well visualized. Great Vessels * The aortic root is normal size. Pericardium/Pleural * There is no pericardial effusion. Great Vessels * Normal inferior vena cava diameter and respiratory variation suggests normal central venous pressure. MMode 2D Measurements and Calculations IVSd 0.96 cm LVIDd 3.4 cm LVIDs 2.3 cm LVPWd 1.1 cm IVS/LVPW 0.89 FS 34.5 % EDV(Teich) 49.0 ml ESV(Teich) 17.3 ml EF(Teich) 64.7 % EDV(cubed) 40.9 ml ESV(cubed) 11.5 ml EF(cubed) 71.9 % LV mass(C)d 103.7 grams LV mass(C)dI 54.8 grams/m\S\2 SV(Teich) 31.7 ml SI(Teich) 16.8 ml/m\S\2 SV(cubed) 29.4 ml SI(cubed) 15.5 ml/m\S\2 Ao root diam 3.4 cm Ao root area 8.9 cm\S\2 ACS 1.6 cm LA dimension 3.1 cm asc Aorta Diam 3.2 cm LA/Ao 0.93 LVOT diam 2.0 cm LVOT area 3.2 cm\S\2 LVAd ap4 21.4 cm\S\2 LVLd ap4 7.0 cm EDV(MOD-sp4) 52.9 ml EDV(sp4-el) 55.4 ml LVAs ap4 11.5 cm\S\2 LVLs ap4 5.9 cm ESV(MOD-sp4) 19.6 ml ESV(sp4-el) 18.9 ml EF(MOD-sp4) 63.0 % EF(sp4-el) 65.9 % LVAd ap2 20.6 cm\S\2 LVLd ap2 7.0 cm EDV(MOD-sp2) 50.0 ml EDV(sp2-el) 51.7 ml LVAs ap2 9.9 cm\S\2 LVLs ap2 5.2 cm ESV(MOD-sp2) 15.3 ml ESV(sp2-el) 16.0 ml EF(MOD-sp2) 69.4 % EF(sp2-el) 69.1 % LVLd %diff -0.76 % EDV(MOD-bp) 52.1 ml LVLs %diff -14.83 % ESV(MOD-bp) 18.0 ml EF(MOD-bp) 65.4 % SV(MOD-sp4) 33.3 ml SI(MOD-sp4) 17.6 ml/m\S\2 SV(MOD-sp2) 34.7 ml SI(MOD-sp2) 18.3 ml/m\S\2 SV(MOD-bp) 34.1 ml SI(MOD-bp) 18.0 ml/m\S\2 SV(sp4-el) 36.5 ml SI(sp4-el) 19.3 ml/m\S\2 SV(sp2-el) 35.7 ml SI(sp2-el) 18.9 ml/m\S\2 Doppler Measurements and Calculations MV E max tigist 80.5 cm/sec MV A max tigist 93.6 cm/sec MV E/A 0.86 MV dec time 0.28 sec Ao V2 max 137.1 cm/sec Ao max PG 7.5 mmHg Ao max PG (full) 5.0 mmHg OSORIO(V,A) 1.9 cm\S\2 OSORIO(V,D) 1.9 cm\S\2 LV V1 max PG 2.5 mmHg LV V1 max 79.1 cm/sec PA V2 max 95.0 cm/sec PA max PG 3.6 mmHg PA acc slope 423.6 cm/sec\S\2 PA acc time 0.14 sec TR max tigist 260.6 cm/sec PA pr(Accel) 15.6 mmHg
[2018-02-06 12:20] VITALS: BP 121/76; PULSE 72; TEMP 36.4; O2SAT 98
--- NOTE | 2018-02-06 12:38 | PROGRESS NOTE ---
DATE: 02/06/2018 Please refer to full cardiology consultation done on 02/06/2018 through Juan C Holland. Assessment and plan as outlined. The patient seen now post-stress echocardiography with patient exercising on a Kyle protocol for 6 minutes at greater than 100% age predicted maximum heart rate. There was no angina induced. There were no ST segment abnormalities induced. Resting and stress LV function were normal. Exam is unremarkable for cardiac issues. Lungs are clear. There is no valvular disease audible or visible on echocardiogram. Cardiac enzymes have been negative. IMPRESSION: A 77-year-old female with atypical chest discomfort with negative stress testing, likely noncardiac source of complaints. RECOMMENDATIONS: Follow up with primary care physician. Continue GI reflux therapies.
[2018-02-06 15:23] VITALS: BP 125/79; PULSE 71; TEMP 36.5; O2SAT 96
--- NOTE | 2018-02-06 16:46 | Discharge Instructions ---
Discharge Instructions Date of Service Feb 06, 2018. Admission Reason for Admission: Chest Pain Discharge Discharge Diagnosis / Problem: chest pain /no evidence of acute coronary event /negative stress test Discharge Goals Goal(s): Decrease discomfort, Improve function, Increase independence, Improve disease control, Therapeutic intervention Activity Recommendations Activity Limitations: resume your previous activity . Instructions / Follow-Up Instructions / Follow-Up HOSPITAL FOLLOW UP : WITH DR DOMINGUEZ Sunday02/11/18 @ 11:05 AM Current Hospital Diet Patient's current hospital diet: AHA Diet (Heart Healthy) Discharge Diet Recommended Diet: AHA Diet (Heart Healthy) Pending Studies Studies pending at discharge: no Laboratory Results Lipid Panel Test 02/06/18 04:29 Range/Units Triglycerides Level 82 0-150 mg/dl Cholesterol Level 178 0-200 mg/dl HDL Cholesterol 60 mg/dl Cholesterol/HDL Ratio 3.0 LDL Cholesterol, Calculated 102 mg/dl Medical Emergencies . Who to Call and When: Medical Emergencies: If at any time you feel your situation is an emergency, please call 911 immediately. . Non-Emergent Contact Non-Emergency issues call your: Primary Care Provider . . "Provider Documentation" section prepared by Kitty Pascual. .
--- NOTE | 2018-02-06 16:54 | Discharge Summary ---
Discharge Summary Date of Service Feb 06, 2018. Discharge Summary Admission Date: Feb 05, 2018 at 18:09 Discharge Date: Feb 06, 2018 Discharge Disposition: Home Principal Diagnosis: CHEST PAIN/NO EVIDENCE OF ACUTE CORONARY EVENT/NEGATIVE STRESS TEST Procedures: EXERCISE CARDIAC STRESS TEST: 02/06/2018 The stress echocardiogram is negative for inducible ischemia. -- Conclusions -- Exercise capacity was above average for age with the patient achieving 7 met level and greater than 100% age-predicted maximum heart rate without cardiac symptoms. Stress EKG was nonischemic with 1/[address] depression at peak workload and no arrhythmias Resting wall motion: Normal. Stress wall motion: Appropriate increase in Left ventricular systolic function and decrease in cavity size. No stress induced segmental wall motion abnormalities. Left ventricular systolic function is normal. RESTING ECHOCARDIOGRAM 02/06/2018 The left ventricle is normal in size. There is borderline concentric left ventricular hypertrophy. Left ventricular systolic function is normal. The left ventricular wall motion is normal. Ejection Fraction = 65-70%. Aortic valve sclerosis moderate, without significant aortic valvular stenosis. There is mild mitral regurgitation. There is trace tricuspid regurgitation. CT CHEST WITH CONTRAST FOR PE: 1. There is no evidence of pulmonary embolus in the main, lobar or segmental pulmonary arteries 2. There is no airspace consolidation or pleural effusion. 3. Mild diffuse peribronchial thickening suggestive reactive airway disease. Consultations: [facility] Medication Reconciliation Continued Medications: Aspirin (Aspirin Chewable) 81 Mg Chew 81 MG PO QAM, TAB Cholecalciferol (Vitamin D 1000 Unit) 1,000 Unit Cap 1000 INTER.UNIT PO QAM, CAP Fexofenadine Hcl (Antionette Allergy) 180 Mg Tab 180 MG PO QAM Fluticasone Propionate (Fluticasone Propionate) 120 Sprays/6000 Mcg Inha 2 SPRAYS THEE DAILY PRN for Allergy Symptoms Gabapentin (Gabapentin) 300 Mg Cap 300 MG PO TID Hctz/Losartan (Hyzaar 12.5MG/50MG) Tab 1 TAB PO DAILY, TAB Lorazepam (Ativan) 0.5 Mg Tab 0.5 MG PO Q8 PRN for Anxiety, TAB Montelukast Sod (Montelukast Sodium) 10 Mg Tab 10 MG PO QPM Pantoprazole (Protonix) 40 Mg Tab 40 MG PO BID, TAB Ranitidine HCl (Ranitidine HCl) 150 Mg Tab 150 MG PO BID Tramadol HCl (Tramadol HCl) 50 Mg Tab 50 MG PO Q4H PRN for Pain Admission Information HPI (per Admitting provider): Pt is 77 y/o F with PMH HTN, GERD, anxiety, IBS, chronic back pain, allergic rhinitis presented to ER with complaint of chest pain. Patient states proximally 1430 today was sitting in a movie theater when she started with left- sided chest pain described as aching with intermittent sharp pains. Pain radiated to left shoulder. Had some nausea, no vomiting. Hx GERD and reports often has indigestion, burping, sometimes epigastric and chest discomfort. She reports today's chest discomfort felt different than her reflux symptoms in the past. Patient states took a couple of Tums today with increased burping and no relief of CP. Denies any shortness of breath or pleuritic chest pain. Denies fever/chills, diaphoresis, D/C, LUU, dizziness, syncope, vision changes, neck pain, SOB, orthopnea, palpitations, cough, sore throat, choking, otalgia, rhinorrhea, abdominal pain, paresthesias, weakness, extremity weakness, extremity edema/erythema/pain, rashes, urinary symptoms, weight loss. Denies recent travel, history DVT/PE, known CAD. History stress test 2012: No evidence of ischemia, EF: 70% Physical Exam (per Admitting): General Appearance: WD/WN, no apparent distress Head: normocephalic, atraumatic Eyes: normal inspection, sclerae normal ENT: hearing grossly normal, pharynx normal, + pertinent finding (Mucous membranes) Neck: supple, trachea midline Respiratory/Chest: lungs clear, normal breath sounds, no respiratory distress, + pertinent finding (Left sternal border mild tenderness to palpation , no rashes noted) Cardiovascular: regular rate, rhythm, no murmur, normal peripheral pulses Abdomen/GI: normal bowel sounds, soft, + pertinent finding (Mild tenderness to epigastric without rebound or guarding, no other abdominal tenderness to palpation) Back: no CVA tenderness Extremities/Musculoskelatal: no calf tenderness, normal capillary refill, no pedal edema, normal range of motion Neurologic/Psych: alert, normal mood/affect, oriented x 3 Skin: warm/dry Hospital Course No complaint of chest pain or anginal symptom Negative exercise cardiac stress test today Stable to be discharged home Physical exam: General: No apparent distress comfortable HEENT: Sclera nonicteric, pupils equal reactive to light. EOMI Neck: Supple, trachea midline, no thyromegaly, Lungs: Clear to auscultate no wheeze or rales Cardiovascular: Regular S1 and S2 no murmur gallop, no jugular venous distention no carotid bruit, no lower extremity edema Abdomen: Soft nontender active bowel sounds no organomegaly Extremity: No rash or deformity Psych: Alert awake oriented 3, normal mood and affect Neuro: No focal neurological deficit Lymph nodes: No lymphadenopathy ASSESSMENT AND PLAN CHEST PAIN/ATYPICAL FOR ANGINA Symptom has resolved CT chest with contrast shows no evidence of PE Resting echocardiogram shows no evidence of wall motion abnormality, normal ejection fraction normal cardiac chambers, no valvular pathology Exercise stress echo shows no evidence of stress is not using cardiac ischemia, no EKG change, no symptom of chest pain or angina with exercise Appreciate input from cardiology Patient is stable to be discharged home No further cardiac workup or medication adjustment indicated HTN Blood pressure stable -Continue losartan/hctz GERD -Continue PPI ANXIETY -Continue Lorazepam as needed ALLERGIC RHINITIS -Continue Singulair, Antionette, Flonase as needed CHRONIC BACK PAIN -Continue gabapentin, tramadol as needed CODE STATUS: Full code DVT prophylaxis: Subcu heparin DISPOSITION: Stable to be discharged home today Discharge Instructions Discharge Instructions Date of Service Feb 06, 2018. Admission Reason for Admission: Chest Pain Discharge Discharge Diagnosis / Problem: chest pain /no evidence of acute coronary event /negative stress test Discharge Goals Goal(s): Decrease discomfort, Improve function, Increase independence, Improve disease control, Therapeutic intervention Activity Recommendations Activity Limitations: resume your previous activity . Instructions / Follow-Up Instructions / Follow-Up HOSPITAL FOLLOW UP : WITH DR DOMINGUEZ Sunday02/11/18 @ 11:05 AM Current Hospital Diet Patient's current hospital diet: AHA Diet (Heart Healthy) Discharge Diet Recommended Diet: AHA Diet (Heart Healthy) Pending Studies Studies pending at discharge: no Laboratory Results Lipid Panel Test 02/06/18 04:29 Range/Units Triglycerides Level 82 0-150 mg/dl Cholesterol Level 178 0-200 mg/dl HDL Cholesterol 60 mg/dl Cholesterol/HDL Ratio 3.0 LDL Cholesterol, Calculated 102 mg/dl Medical Emergencies . Who to Call and When: Medical Emergencies: If at any time you feel your situation is an emergency, please call 911 immediately. . Non-Emergent Contact Non-Emergency issues call your: Primary Care Provider . . "Provider Documentation" section prepared by Kitty Pascual. .
[2018-02-06 17:23] VITALS: BP 125/79; PULSE 71; TEMP 36.5; O2SAT 96
== END 2018-02-06 17:40 | disposition home or self-care (01) ==
LOC: C.EDB 15:34 → C.2T 18:09 → ENRESERV 18:24
PROVIDERS: ADMIT Internal Medicine; ATTEND Hospitalist
DX: R07.9 Chest pain, unspecified (principal); I10 Essential (primary) hypertension; K21.9 Gastro-esophageal reflux disease without esophagitis; F41.9 Anxiety disorder, unspecified; Z79.82 Long term (current) use of aspirin; Z79.899 Other long term (current) drug therapy; Z88.1 Allergy status to other antibiotic agents; Z88.2 Allergy status to sulfonamides